=== PATIENT | female | born 1985 | race Asian ===

== ENCOUNTER 2017-12-06 16:36 | Inpatient (IN) | payer OTHER ==
[~2017-12-06] VITALS: Ht 149.9 cm; Wt 72.7 kg
[2017-12-06] MEDS ORDERED: LABE200T3 PO (16:54)
[2017-12-06] MEDS ORDERED: PREN1TAB60 PO (16:54)
[2017-12-06] MEDS ORDERED: GLYB2.5T2 PO (16:54)
[2017-12-06 17:15] LABS: BASOPHILS # (AUTO) 0.04 x10^3/uL (0-0.1); BASOPHILS % (AUTO) 0 % (0-1); EOSINOPHILS # (AUTO) 0.03 x10^3/uL (0-0.4); EOSINOPHILS % (AUTO) 0 % (1-7); LYMPHOCYTES # (AUTO) 2.36 x10^3/uL (1-3.4); LYMPHOCYTES % (AUTO) 26 % (22-44); MD NO; MEAN CORPUSCULAR HEMOGLOBIN 25.7 pg (27.0-34.8); MEAN CORPUSCULAR HGB CONC 32.6 g/dL (32.4-35.8); MEAN PLATELET VOLUME 8.4 fL (7.4-10.4); MONOCYTES # (AUTO) 0.58 x10^3/uL (0.2-0.8); MONOCYTES % (AUTO) 7 % (2-9); NEUTROPHILS # (AUTO) 5.93 x10^3/uL (1.8-6.8); NEUTROPHILS % (AUTO) 66 % (42-75); PLATELET COUNT 271 x10^3/uL (130-400); RED BLOOD COUNT 4.97 x10^6/uL (3.82-5.3)
[2017-12-06] MEDS ORDERED: LABETALOL 200 MG TABLET ONE (17:20)
[2017-12-06 17:25] LABS: MICROSCOPIC INDICATED
[2017-12-06] MEDS ORDERED: LABETALOL 100 MG TABLET ONE (17:26)
[2017-12-06] MEDS ORDERED: PLEASE ENTER WEIGHT MC SCH (17:26)
[2017-12-06 17:27] LABS: ALANINE AMINOTRANSFERASE 15 U/L (12-78); ALBUMIN 2.5 g/dL (3.4-5.0); ANION GAP 9 mmol/L (5-15); CALCIUM 8.3 mg/dL (8.5-10.1); CHLORIDE 112 mmol/L (98-107); CREATININE 0.55 mg/dL (0.55-1.02)
[2017-12-06 17:29] LABS: ALKALINE PHOSPHATASE 110 U/L (45-117); BILIRUBIN,TOTAL 0.3 mg/dL (0.2-1.0); TOTAL PROTEIN 7.2 g/dL (6.4-8.2)
[2017-12-06 17:30] VITALS: BP 146/97
[2017-12-06] MEDS ORDERED: LABETALOL 200 MG TABLET PO SCH ×2 (17:30)
[2017-12-06 17:32] LABS: CREATININE,URINE RANDOM 74.8 mg/dL
[2017-12-06] MEDS ORDERED: LABETALOL 100 MG TABLET PO ONE (18:00)
[2017-12-06] MEDS ORDERED: AMPICILLIN 2 GM in SODIUM CHLORIDE 0.9% 100 ML IVPB STA (18:01)
[2017-12-06] MEDS ORDERED: OXYTOCIN 30U/ 0.9% NaCL 500ML 500 ML IV ONE (18:01)
[2017-12-06] MEDS ORDERED: OXYTOCIN 30U/ 0.9% NaCL 500ML 500 ML IV PRN (18:01)
[2017-12-06] MEDS ORDERED: NEWBORN KIT ONE (18:18)
[2017-12-06] MEDS ORDERED: MISOPROSTOL 200 MCG TABLET ONE (18:19)
[2017-12-06] MEDS ORDERED: OXYTOCIN 30U/ 0.9% NaCL 500ML 500 ML ONE (18:19)
[2017-12-06] MEDS ORDERED: LIDOCAINE 1%, 20ML ONE (18:19)
[2017-12-06] MEDS ORDERED: LABETALOL 5MG/ML, 20ML IVPush PRN (18:30)
[2017-12-06] MEDS ORDERED: FENTANYL PF 100 MCG/2ML IVPush PRN (18:30)
[2017-12-06] MEDS ORDERED: ONDANSETRON 2MG/ML, 2ML IVPush PRN (18:30)
[2017-12-06] MEDS ORDERED: FENTANYL PF 100 MCG/2ML IV PRN (18:30)
[2017-12-06] MEDS: LACTATED RINGERS 1,000 ML IV SCH (18:41)
[2017-12-06] MEDS: LABETALOL 100 MG HOMEMEDPO SCH (21:30)
[2017-12-06] MEDS: AMPICILLIN 1 GM in SODIUM CHLORIDE 0.9% 50 ML IVPB SCH (22:36)
[2017-12-07] MEDS: LACTATED RINGERS 1,000 ML IV SCH ×5 (02:00→18:52)
[2017-12-07] MEDS ORDERED: BUPIVACAINE 0.25% ONE (02:26)
[2017-12-07] MEDS ORDERED: FENTANYL PF 100 MCG/2ML ONE (02:26)
[2017-12-07] MEDS ORDERED: FENTANYL/BUPIV./NS/PF 250 ML EPIDCONT ONE ×2 (02:26→02:30)
[2017-12-07] MEDS: AMPICILLIN 1 GM in SODIUM CHLORIDE 0.9% 50 ML IVPB SCH ×3 (02:30→10:31)
[2017-12-07] MEDS ORDERED: LIDOCAINE 1%-EPI 1:100K, 20ML ONE (02:30)
[2017-12-07] MEDS ORDERED: FENTANYL/BUPIV./NS/PF 250 ML EPIDCONT SCH (02:52)
[2017-12-07] MEDS ORDERED: LACTATED RINGERS 1,000 ML IVBOLUS PRN (03:00)
[2017-12-07] MEDS ORDERED: LABETALOL 100 MG TABLET PO SCH ×2 (06:00→18:00)
[2017-12-07] MEDS: LABETALOL 100 MG HOMEMEDPO SCH ×2 (09:00→21:30)
[2017-12-07] MEDS ORDERED: LIDOCAINE 1%, 20ML ONE (10:21)
[2017-12-07] MEDS ORDERED: OXYTOCIN 30U/ 0.9% NaCL 500ML 500 ML ONE (12:59)
[2017-12-07] MEDS ORDERED: OXYcodone/APAP 5/325MG TABLET PO PRN (13:00)
[2017-12-07] MEDS ORDERED: IBUPROFEN 600 MG TABLET PO PRN (13:00)
[2017-12-07] MEDS ORDERED: MISOPROSTOL 200 MCG TABLET SL PRN (13:00)
[2017-12-07] MEDS ORDERED: DOCUSATE 100 MG CAPSULE PO PRN (13:00)
[2017-12-07] MEDS ORDERED: ONDANSETRON 2MG/ML, 2ML IV PRN (13:00)
[2017-12-07] MEDS ORDERED: OXYcodone IR 5MG TABLET PO PRN (13:00)
[2017-12-07] MEDS: OXYTOCIN 30U/ 0.9% NaCL 500ML 500 ML IV SCH ×2 (13:32→22:43)
[2017-12-07] MEDS ORDERED: IBUPROFEN 600 MG TABLET ONE (13:37)
[2017-12-07] MEDS ORDERED: OXYTOCIN 30U/ 0.9% NaCL 500ML 500 ML IV SCH (13:51)
[2017-12-07 14:45] VITALS: BP 136/92
[2017-12-07] MEDS: INSULIN REGULAR 100 UNITS/ML, 3ML VIAL SQ-INSULIN SCH (18:00)
[2017-12-07 19:45] VITALS: BP 135/75
[2017-12-07 20:20] LABS: BASOPHILS # (AUTO) 0.06 x10^3/uL (0-0.1); BASOPHILS % (AUTO) 0 % (0-1); EOSINOPHILS # (AUTO) 0.01 x10^3/uL (0-0.4); EOSINOPHILS % (AUTO) 0 % (1-7); LYMPHOCYTES # (AUTO) 3.26 x10^3/uL (1-3.4); LYMPHOCYTES % (AUTO) 18 % (22-44); MD NO; MEAN CORPUSCULAR HEMOGLOBIN 25.9 pg (27.0-34.8); MEAN CORPUSCULAR HGB CONC 32.7 g/dL (32.4-35.8); MEAN CORPUSCULAR VOLUME 79.3 fL (80-100); MEAN PLATELET VOLUME 8.4 fL (7.4-10.4); MONOCYTES % (AUTO) 5 % (2-9); NEUTROPHILS % (AUTO) 77 % (42-75); PLATELET COUNT 262 x10^3/uL (130-400); RED BLOOD COUNT 4.41 x10^6/uL (3.82-5.3); RED CELL DISTRIBUTION WIDTH 16.1 % (9.6-15.2)
[2017-12-07 23:50] VITALS: BP 125/78
[2017-12-08] MEDS: LACTATED RINGERS 1,000 ML IV SCH (02:52)
[2017-12-08 04:00] VITALS: BP 124/78
[2017-12-08] MEDS: INSULIN REGULAR 100 UNITS/ML, 3ML VIAL SQ-INSULIN SCH (06:24)
[2017-12-08] MEDS: OXYTOCIN 30U/ 0.9% NaCL 500ML 500 ML IV SCH (06:25)
[2017-12-08 07:50] VITALS: BP 137/91
[2017-12-08] MEDS: LABETALOL 100 MG HOMEMEDPO SCH (08:09)
[2017-12-08] MEDS ORDERED: PRENATAL VIT/IRON/FA 1 EACH TABLET PO SCH (09:00)
[2017-12-08] MEDS ORDERED: IBUP-1222 PO (10:30)
[2017-12-08 12:30] VITALS: BP 134/81
== END 2017-12-08 14:34 | disposition home or self-care (01) | DRG 774 ==
LOC: LDOP 16:36 → LDIP 18:01 → 2NW 12-07 14:20
PROVIDERS: ADMIT Obstetrics & Gynecology; ATTEND Obstetrics & Gynecology
PROC: 3E0R3BZ Introduction of Anesthetic Agent into Spinal Canal, Percutaneous Approach (ICD-10-PCS; 2017-12-06)
PROC: 00HU33Z Insertion of Infusion Device into Spinal Canal, Percutaneous Approach (ICD-10-PCS; 2017-12-06)
PROC: 10E0XZZ Delivery of Products of Conception, External Approach (ICD-10-PCS; principal; 2017-12-07)
PROC: 0KQM0ZZ Repair Perineum Muscle, Open Approach (ICD-10-PCS; 2017-12-07)
PROC: 3E033VJ Introduction of Other Hormone into Peripheral Vein, Percutaneous Approach (ICD-10-PCS; 2017-12-07)
DX: O10.02 Pre-existing essential hypertension complicating childbirth (principal); O70.1 Second degree perineal laceration during delivery; O99.824 Streptococcus B carrier state complicating childbirth; Z3A.38 38 weeks gestation of pregnancy; Z37.0 Single live birth
CPT/HCPCS: 36415; 80053; 81001; 82570; 82962; 84156; 84550; 85025; 86850; 86900; J0290; J3490; J2590; J3010; J7120